=== PATIENT | male | born 1975 | race Caucasian/White ===

== ENCOUNTER 2019-04-23 04:12 | Inpatient (IN) | payer MEDICAID ==
[~2019-04-23] VITALS: Ht 165.1 cm; Wt 66.8 kg
[2019-04-23] VITALS (50 sets, daily range): BP systolic 84–136; BP diastolic 17–70
[2019-04-23] MEDS ORDERED: SODIUM CHLORIDE 0.9% 1,000 ML IV ONE (05:03)
[2019-04-23] MEDS ORDERED: LEVETIRACETAM 1000MG/100ML 100 ML IV ONE (05:15)
[2019-04-23 05:48] LABS: CHLORIDE 99 mEq/L (98-107)
[2019-04-23 05:51] LABS: ETHANOL BLOOD 144 mg/dL
[2019-04-23 05:52] LABS: HEMOGLOBIN. 10.1 g/dL (14.0-18.0); MEAN PLATELET VOLUME 9.7 fl (7.4-10.4); PLATELET 70 x1000/uL (130-400); RED BLOOD CELL COUNT 3.26 mill/uL (4.7-6.1); RED CELL DISTRIBUTION WIDTH 18.6 % (11.6-14.6)
[2019-04-23] MEDS ORDERED: HYDRALAZINE 20MG/ML VIAL IV ONE (06:15)
[2019-04-23] MEDS ORDERED: MANNITOL 12.5G (25%) VIAL 50ML IV ONE (06:30)
[2019-04-23] MEDS ORDERED: LEVETIRACETAM 500MG PREMIX 100 ML IV ONE (06:30)
[2019-04-23] MEDS ORDERED: DEXAMETHASONE 10 MG/ML VIAL IV ONE (06:30)
[2019-04-23 06:41] LABS: NUCLEATED RED BLOOD CELLS 1 /100 WBC; PLATELET ESTIMATE DECREASED
[2019-04-23] MEDS ORDERED: SUCCINYLCHOLINE CHLORIDE 200MG/10ML IV ONE (07:00)
[2019-04-23] MEDS ORDERED: ETOMIDATE 2MG/ML 10ML VIAL IV ONE (07:00)
[2019-04-23] MEDS ORDERED: PROPOFOL 10MG/ML 100ML 100 ML IV SCH (07:15)
[2019-04-23 07:16] LABS: INR 1.4; PARTIAL THROMBOPLASTIN TIME 35.7 sec (23.4-31.0); PROTHROMBIN TIME 14.7 sec (9.6-11.0)
[2019-04-23] MEDS ORDERED: IOHEXOL-350 100 ML BOTTLE ONE (07:21)
[2019-04-23] MEDS ORDERED: PANTOPRAZOLE SODIUM 40 MG/VIAL IV ONE (08:00)
[2019-04-23] MEDS ORDERED: POTASSIUM CHLORIDE INJ 40 MEQ in DEXT 5% WATER 250 ML IV ONE (09:00)
[2019-04-23] MEDS ORDERED: NICARDIPINE 40MG/200ML PREMIX 200 ML IV STA (09:16)
[2019-04-23 10:06] LABS: HEMATOCRIT 31.2 % (42.0-52.0); HEMOGLOBIN 10.5 g/dL (14.0-18.0); MEAN CORPUSCULAR HEMOGLOBIN 30.8 pg (28.0-32.0); MEAN CORPUSCULAR VOLUME 91.7 fL (80.0-94.0); PLATELET 78 x1000/uL (130-400); RED CELL DISTRIBUTION WIDTH 18.6 % (11.6-14.6)
[2019-04-23] MEDS ORDERED: FENTANYL CITRATE/PF 50MCG/ML 2ML VIAL ONE (10:13)
[2019-04-23] MEDS ORDERED: ROCURONIUM BROMIDE 10MG/ML VIAL 5ML IV ONE (10:14)
[2019-04-23] MEDS ORDERED: LEVETIRACETAM 500 MG in SODIUM CHLORIDE 0.9% 100 ML IV SCH (10:30)
[2019-04-23] MEDS ORDERED: ONDANSETRON HCL 4MG/2ML INJ IV PRN ×2 (10:30)
[2019-04-23] MEDS ORDERED: DEXT 5%/LACTATED RINGERS 1,000 ML IV SCH (10:30)
[2019-04-23] MEDS ORDERED: NICARDIPINE 50 MG in SODIUM CHLORIDE 0.9% 230 ML IV PRN (10:30)
[2019-04-23] MEDS ORDERED: NORMAL SALINE 0.9% 10 ML SYR ONE (10:30)
[2019-04-23] MEDS ORDERED: LIDOCAINE HCL/EPINEPHRINE 1%-EPI 1:100,000 20 ML VIAL ONE (10:31)
[2019-04-23] MEDS ORDERED: THROMBIN (BOVINE) 5000 UNITS/VIAL TOP ONE ×2 (10:31→10:32)
[2019-04-23] MEDS ORDERED: BACITRACIN 50,000 UNITS/VIAL ONE (10:32)
[2019-04-23] MEDS ORDERED: BACITRACIN 15GM TUBE TOP ONE (10:41)
[2019-04-23] MEDS ORDERED: ESMOLOL HCL 10MG/ML 10ML VIAL IV ONE (10:43)
[2019-04-23] MEDS ORDERED: NICARDIPINE 100 MG in SODIUM CHLORIDE 0.9% 60 ML IV PRN (10:45)
[2019-04-23] MEDS ORDERED: CEFAZOLIN SODIUM 1000MG/VIAL ONE (10:46)
[2019-04-23] MEDS ORDERED: SODIUM CHLORIDE 0.9% 10ML VIAL ONE (10:47)
[2019-04-23] MEDS ORDERED: PANTOPRAZOLE SODIUM 40 MG/VIAL IV SCH (11:00)
[2019-04-23] MEDS ORDERED: ALBUMIN HUMAN 12.5G/250ML (5%) IV ONE (11:26)
[2019-04-23] MEDS ORDERED: MORPHINE SULFATE 4 MG/ML CPJ (NOT FOR IM USE) IV PRN (11:30)
[2019-04-23 12:01] LABS: HEPATITIS B SURFACE ANTIGEN NEGATIVE
[2019-04-23] MEDS ORDERED: MAGNESIUM 2 G PREMIX 50 ML IV SCH (12:30)
[2019-04-23 12:31] LABS: HEPATITIS A AB IGM NEGATIVE (NEGATIVE)
[2019-04-23] MEDS: DEXAMETHASONE 4MG/ML 1ML VIAL IV SCH ×3 (13:00→23:37)
[2019-04-23] MEDS ORDERED: POTASSIUM CHLORIDE INJ 40 MEQ in DEXT 5% WATER 250 ML IV SCH (14:00)
[2019-04-23] MEDS ORDERED: CEFAZOLIN 1000MG PREMIX 50 ML IV SCH (14:00)
[2019-04-23] MEDS: CEFAZOLIN 1000MG PREMIX 50 ML IV SCH ×2 (14:00→18:10)
[2019-04-23 14:24] LABS: BG BASE EXCESS -5.4 mmol/L (-2.0-2.0); BG CARBOXYHEMOGLOBIN 0.4 % (0.5-1.5); BG DEOXYHEMOGLOBIN 1.4 % (0.0-5.0); BG FRACTION INSPIRED OXYGEN 40; BG HCO3 ACT 17.5 mmol/L (22.0-26.0); BG METHEMOGLOBIN 0.1 % (0.0-1.5); BG OXYGEN SATURATION 98.6 % (92.0-98.5); BG OXYHEMOGLOBIN 98.1 % (94.0-97.0); BG PCO2 26.4 mmHg (35.0-45.0); BG PH 7.439 (7.350-7.450); BG PO2 139.3 mmHg (75.0-100.0); BG SAMPLE SITE A-LINE; BG TIDAL VOLUME(mL) 500 mL; BG VENT MODE VENT - A/C; BG VENT RATE 16 set
[2019-04-23] MEDS ORDERED: LEVETIRACETAM 500MG PREMIX 100 ML IV SCH (17:00)
[2019-04-23] MEDS: PANTOPRAZOLE SODIUM 40 MG/VIAL IV SCH ×2 (18:29→20:27)
[2019-04-23] MEDS: NICARDIPINE 100 MG in SODIUM CHLORIDE 0.9% 60 ML IV PRN (20:05)
[2019-04-23] MEDS: DEXT 5%/LACTATED RINGERS 1,000 ML IV SCH (20:25)
[2019-04-23] MEDS: LEVETIRACETAM 500MG PREMIX 100 ML IV SCH (20:27)
[2019-04-23] MEDS: IPRATROPIUM/ALBUTEROL 0.5-3(2.5)MG/3ML NEB HHN SCH (20:47)
[2019-04-23 22:11] LABS: CLARITY URINE CLEAR (CLEAR); COLOR URINE YELLOW (YELLOW); KETONES URINE NEGATIVE (NEGATIVE); LEUKOCYTE ESTERASE URINE NEGATIVE (NEGATIVE); NITRITE URINE NEGATIVE (NEGATIVE); OCCULT BLOOD URINE 1+ (NEGATIVE); PH URINE 7.5 (4.5-8.0); PROTEIN URINE NEGATIVE (NEGATIVE); SPECIFIC GRAVITY URINE 1.006 (1.005-1.030); UROBILINOGEN URINE 0.2 E.U./dL (0.2-1.0)
[2019-04-23 22:23] LABS: *AMPHETAMINES SCREEN URINE PRESUMTIVE POSITIVE (NEGATIVE); *BARBITURATES SCREEN URINE NEGATIVE (NEGATIVE); *BENZODIAZEPINES SCREEN URINE PRESUMTIVE POSITIVE (NEGATIVE); *COCAINE SCREEN URINE NEGATIVE (NEGATIVE); CANNABINOID URINE SCREEN NEGATIVE (NEGATIVE); METHADONE URINE SCREEN NEGATIVE (NEGATIVE); OPIATES URINE SCREEN NEGATIVE (NEGATIVE); PHENCYCLIDINE URINE SCREEN NEGATIVE (NEGATIVE)
[2019-04-24] VITALS (93 sets, daily range): BP systolic 82–131; BP diastolic 44–71
[2019-04-24] MEDS: IPRATROPIUM/ALBUTEROL 0.5-3(2.5)MG/3ML NEB HHN SCH ×5 (00:30→20:26)
[2019-04-24] MEDS: CEFAZOLIN 1000MG PREMIX 50 ML IV SCH ×2 (02:13→11:00)
[2019-04-24] MEDS ORDERED: SODIUM CHLORIDE 0.9% 500 ML IV NR (02:45)
[2019-04-24 05:44] LABS: HEMATOCRIT. 30.9 % (42.0-52.0); HEMOGLOBIN. 10.4 g/dL (14.0-18.0); MEAN CORPUSCULAR HEMOGLOBIN 30.8 pg (28.0-32.0); MEAN CORPUSCULAR VOLUME 91.8 fL (80.0-94.0); MEAN PLATELET VOLUME 10.4 fl (7.4-10.4); PLATELET 88 x1000/uL (130-400); RED BLOOD CELL COUNT 3.37 mill/uL (4.7-6.1)
[2019-04-24 05:46] LABS: CHLORIDE 111 mEq/L (98-107)
[2019-04-24 05:49] LABS: INR 1.5; PARTIAL THROMBOPLASTIN TIME 34.1 sec (23.4-31.0); PROTHROMBIN TIME 15.4 sec (9.6-11.0)
[2019-04-24] MEDS: DEXAMETHASONE 4MG/ML 1ML VIAL IV SCH ×2 (06:03→12:00)
[2019-04-24 07:47] LABS: BG CARBOXYHEMOGLOBIN 0.3 % (0.5-1.5); BG DEOXYHEMOGLOBIN 1.9 % (0.0-5.0); BG FRACTION INSPIRED OXYGEN 35; BG HCO3 ACT 22.2 mmol/L (22.0-26.0); BG METHEMOGLOBIN 0.2 % (0.0-1.5); BG OXYGEN SATURATION 98.1 % (92.0-98.5); BG OXYHEMOGLOBIN 97.6 % (94.0-97.0); BG PCO2 28.5 mmHg (35.0-45.0); BG PH 7.509 (7.350-7.450); BG SAMPLE SITE A-LINE; BG TIDAL VOLUME(mL) 500 mL; BG TOTAL HEMOGLOBIN 11.8 g/dL (12.0-18.0); BG VENT MODE VENT - A/C; BG VENT RATE 12 set
[2019-04-24 09:00] LABS: PLATELET ESTIMATE DECREASED
[2019-04-24] MEDS ORDERED: PANTOPRAZOLE SODIUM 40 MG/VIAL IV SCH (09:00)
[2019-04-24] MEDS: DEXT 5%/LACTATED RINGERS 1,000 ML IV SCH ×2 (10:00→12:46)
[2019-04-24] MEDS: LEVETIRACETAM 500MG PREMIX 100 ML IV SCH ×2 (10:06→21:58)
[2019-04-24] MEDS: PANTOPRAZOLE SODIUM 40 MG/VIAL IV SCH ×2 (10:06→21:58)
[2019-04-24] MEDS ORDERED: DEXTROSE 50% WATER 50ML SYRINGE IV PRN (17:15)
[2019-04-24] MEDS: BLOOD SUGAR DIAGNOSTIC STRIP TEST SCH (18:00)
[2019-04-24] MEDS ORDERED: DESMOPRESSIN ACETATE 4MCG/ML AMP SUBCUT NR (18:30)
[2019-04-24] MEDS: NICARDIPINE 100 MG in SODIUM CHLORIDE 0.9% 60 ML IV PRN (18:34)
[2019-04-24] MEDS: INSULIN LISPRO 100 UNITS/ML SUBCUT SCH (18:43)
[2019-04-24 18:51] LABS: SODIUM URINE RANDOM 10 mEq/L
[2019-04-24] MEDS ORDERED: DESMOPRESSIN ACETATE 4MCG/ML AMP SUBCUT SCH (21:00)
[2019-04-25] VITALS (97 sets, daily range): BP systolic 67–149; BP diastolic 32–88
[2019-04-25] MEDS: BLOOD SUGAR DIAGNOSTIC STRIP TEST SCH ×4 (00:24→17:24)
[2019-04-25] MEDS: INSULIN LISPRO 100 UNITS/ML SUBCUT SCH ×4 (00:28→17:28)
[2019-04-25] MEDS: IPRATROPIUM/ALBUTEROL 0.5-3(2.5)MG/3ML NEB HHN SCH ×6 (00:45→20:13)
[2019-04-25] MEDS: DEXT 5%/LACTATED RINGERS 1,000 ML IV SCH ×3 (03:56→20:44)
[2019-04-25 06:01] LABS: CHLORIDE 128 mEq/L (98-107)
[2019-04-25 06:06] LABS: HEMATOCRIT. 32.9 % (42.0-52.0); HEMOGLOBIN. 10.5 g/dL (14.0-18.0); MEAN CORPUSCULAR HEMOGLOBIN 30.2 pg (28.0-32.0); MEAN CORPUSCULAR VOLUME 94.2 fL (80.0-94.0); PLATELET 87 x1000/uL (130-400); RED BLOOD CELL COUNT 3.49 mill/uL (4.7-6.1); RED CELL DISTRIBUTION WIDTH 18.1 % (11.6-14.6)
[2019-04-25] MEDS ORDERED: DESMOPRESSIN ACETATE 4MCG/ML AMP SUBCUT SCH (09:00)
[2019-04-25] MEDS: LEVETIRACETAM 500MG PREMIX 100 ML IV SCH ×2 (09:30→20:45)
[2019-04-25] MEDS: PANTOPRAZOLE SODIUM 40 MG/VIAL IV SCH ×2 (09:30→20:43)
[2019-04-25] MEDS: DESMOPRESSIN ACETATE 4MCG/ML AMP SUBCUT SCH ×2 (09:31→20:44)
[2019-04-25 12:05] LABS: NUCLEATED RED BLOOD CELLS 1 /100 WBC; PLATELET ESTIMATE DECREASED
[2019-04-25] MEDS ORDERED: NOREPINEPHRINE 32 MG in DEXT 5% WATER 468 ML IV PRN (20:15)
[2019-04-25] MEDS ORDERED: VASOPRESSIN 10 UNIT in SODIUM CHLORIDE 0.9% 99.5 ML IV PRN (20:15)
[2019-04-25] MEDS ORDERED: PHENYLEPHRINE 80 MG in DEXT 5% WATER 492 ML IV PRN (20:15)
[2019-04-25] MEDS: PHENYLEPHRINE 80 MG in DEXT 5% WATER 492 ML IV PRN (20:50)
[2019-04-26] VITALS (84 sets, daily range): BP systolic 12–146; BP diastolic 12–74
[2019-04-26] MEDS: IPRATROPIUM/ALBUTEROL 0.5-3(2.5)MG/3ML NEB HHN SCH ×7 (00:29→20:26)
[2019-04-26] MEDS: BLOOD SUGAR DIAGNOSTIC STRIP TEST SCH ×4 (00:36→18:00)
[2019-04-26] MEDS: INSULIN LISPRO 100 UNITS/ML SUBCUT SCH ×4 (00:40→18:00)
[2019-04-26] MEDS: DEXT 5%/LACTATED RINGERS 1,000 ML IV SCH ×2 (05:18→12:45)
[2019-04-26] MEDS ORDERED: ACETAMINOPHEN 650MG/20.3ML UDC NG PRN (07:30)
[2019-04-26] MEDS: PANTOPRAZOLE SODIUM 40 MG/VIAL IV SCH (07:57)
[2019-04-26] MEDS: LEVETIRACETAM 500MG PREMIX 100 ML IV SCH (08:07)
[2019-04-26] MEDS: DESMOPRESSIN ACETATE 4MCG/ML AMP SUBCUT SCH (08:07)
[2019-04-26] MEDS: PHENYLEPHRINE 80 MG in DEXT 5% WATER 492 ML IV PRN (11:02)
[2019-04-26 13:18] LABS: HEMATOCRIT 30.5 % (42.0-52.0); HEMOGLOBIN 9.7 g/dL (14.0-18.0); MEAN CORPUSCULAR VOLUME 97.5 fL (80.0-94.0); PLATELET 54 x1000/uL (130-400); RED BLOOD CELL COUNT 3.13 mill/uL (4.7-6.1); RED CELL DISTRIBUTION WIDTH 18.9 % (11.6-14.6)
[2019-04-26 13:26] LABS: CHLORIDE 132 mEq/L (98-107)
[2019-04-26] MEDS ORDERED: MORPHINE SULFATE 250 MG in DEXT 5% WATER 240 ML IV PRN (16:45)
[2019-04-27 09:49] LABS: BG BASE EXCESS -2.1 mmol/L (-2.0-2.0); BG CARBOXYHEMOGLOBIN 0.3 % (0.5-1.5); BG DEOXYHEMOGLOBIN 6.3 % (0.0-5.0); BG FRACTION INSPIRED OXYGEN 55; BG HCO3 ACT 21.8 mmol/L (22.0-26.0); BG METHEMOGLOBIN 0.3 % (0.0-1.5); BG OXYGEN SATURATION 93.7 % (92.0-98.5); BG OXYHEMOGLOBIN 93.1 % (94.0-97.0); BG PCO2 33.9 mmHg (35.0-45.0); BG PH 7.426 (7.350-7.450); BG PO2 70.9 mmHg (75.0-100.0); BG SAMPLE SITE RIGHT RADIAL; BG TIDAL VOLUME(mL) 500 mL; BG TOTAL HEMOGLOBIN 10.2 g/dL (12.0-18.0); BG VENT MODE VENT - A/C; BG VENT RATE 8 set
== END 2019-04-27 00:11 | disposition expired | DRG 21 ==
LOC: ER 04:12 → EDBD 04:12 → MICUSO 09:31 → EDBEDREQ 09:34 → ENRESERV 09:54 → MICUNO 04-24 05:24
PROVIDERS: ADMIT Internal Medicine; ATTEND Internal Medicine
PROC: 30233K1 Transfusion of Nonautologous Frozen Plasma into Peripheral Vein, Percutaneous Approach (ICD-10-PCS; principal; 2019-04-23)
PROC: 30233R1 Transfusion of Nonautologous Platelets into Peripheral Vein, Percutaneous Approach (ICD-10-PCS; 2019-04-23)
PROC: 30233N1 Transfusion of Nonautologous Red Blood Cells into Peripheral Vein, Percutaneous Approach (ICD-10-PCS; 2019-04-23)
PROC: 4A103BD Monitoring of Intracranial Pressure, Percutaneous Approach (ICD-10-PCS; 2019-04-23)
PROC: 00U207Z Supplement Dura Mater with Autologous Tissue Substitute, Open Approach (ICD-10-PCS; 2019-04-23)
PROC: 00H632Z Insertion of Monitoring Device into Cerebral Ventricle, Percutaneous Approach (ICD-10-PCS; 2019-04-23)
PROC: 5A1945Z Respiratory Ventilation, 24-96 Consecutive Hours (ICD-10-PCS; 2019-04-23)
PROC: 0BH17EZ Insertion of Endotracheal Airway into Trachea, Via Natural or Artificial Opening (ICD-10-PCS; 2019-04-23)
PROC: 00C70ZZ Extirpation of Matter from Cerebral Hemisphere, Open Approach (ICD-10-PCS; 2019-04-23)
DX: I63.9 Cerebral infarction, unspecified (principal); J95.821 Acute postprocedural respiratory failure; G93.40 Encephalopathy, unspecified; I60.9 Nontraumatic subarachnoid hemorrhage, unspecified; I61.5 Nontraumatic intracerebral hemorrhage, intraventricular; K92.2 Gastrointestinal hemorrhage, unspecified; I61.1 Nontraumatic intracerebral hemorrhage in hemisphere, cortical; E83.42 Hypomagnesemia; D68.4 Acquired coagulation factor deficiency; D69.59 Other secondary thrombocytopenia; E87.1 Hypo-osmolality and hyponatremia; I10 Essential (primary) hypertension; G40.909 Epilepsy, unspecified, not intractable, without status epilepticus; R32 Unspecified urinary incontinence; Y90.6 Blood alcohol level of 120-199 mg/100 ml; F10.129 Alcohol abuse with intoxication, unspecified; E87.6 Hypokalemia; D64.9 Anemia, unspecified; K70.30 Alcoholic cirrhosis of liver without ascites; R40.2430 Glasgow coma scale score 3-8, unspecified time; Y83.8 Other surgical procedures as the cause of abnormal reaction of the patient, or of later complication, without mention of misadventure at the time of the procedure; Y92.238 Other place in hospital as the place of occurrence of the external cause; Z66 Do not resuscitate; E87.0 Hyperosmolality and hypernatremia; T51.0X1A Toxic effect of ethanol, accidental (unintentional), initial encounter; Y92.89 Other specified places as the place of occurrence of the external cause
CPT/HCPCS: 31500; 36415; 36600; 70496; 71045; 76700; 78610; 80048; 80053; 80305; 80320; 81003; 82375; 82805; 82962; 83036; 83735; 83935; 84132; 84145; 84300; 85025; 85027; 86705; 86709; 86803; 86850; 86900; 86920; 86927; 86945; 87340; 93005; 93970; 94003; 94640; 99291; A6261; A9512; C1713; C9113; J0360; J0690; J1100; J1815; J1953; J2150; J2270; J2274; J2370; J2597; J2704; J3010; J3475; J3480; J3490; J7030; J7040; J7050; J7060; J7121; J7620; P9016; P9017; P9034; P9041; Q9967; A4315; G0480